=== PATIENT | male | born 1965 | race Caucasian/White ===

== ENCOUNTER 2022-05-18 07:25 | Emergency (ER) | payer BC ==
[2022-05-18 07:40] VITALS: BP 104/78; PULSE 95; RESP 18; TEMP 99.3; BMI 23.1
== END 2022-05-18 08:10 | disposition home or self-care (01) ==
LOC: FER 07:25
DX: L03.211 Cellulitis of face (principal)
CPT/HCPCS: 99283-25

== ENCOUNTER 2022-05-18 20:56 | Emergency (ER) | payer BC ==
[2022-05-18 21:14] VITALS: BP 132/80; PULSE 102; RESP 16; BMI 23.1
[2022-05-18] MEDS ORDERED: CEFTRIAXONE 2,000 MG in DEXTROSE 5%-WATER - 50 ML IVPB ONE (21:36)
[2022-05-18] MEDS ORDERED: ACETAMINOPHEN 500 MG TABLET (FP) PO ONE (21:45)
[2022-05-18] MEDS ORDERED: ACETAMINOPHEN 325 MG TABLET (FP) ONE (21:47)
[2022-05-18] MEDS ORDERED: KETOROLAC TROMETHAMINE 30 MG/1 ML VIAL ONE (22:56)
[2022-05-18] MEDS ORDERED: KETOROLAC TROMETHAMINE 30 MG/1 ML VIAL IVPUSH ONE (22:56)
[2022-05-18 23:05] LABS: HEMOGLOBIN 13.1 G/dL (11.7-16.9); MCH 28.7 pg (25.7-33.7); MCHC 34.4 g/dl (32.0-35.9); MEAN CELL VOLUME 83.5 fl (80-96); MEAN PLT VOLUME 8.2 fl (7.5-11.1); PLATELET COUNT 246.4 10^3/uL (134-434); RBC 4.55 10^6/uL (4.00-5.60); RDW 14.1 % (11.9-15.9); WHITE BLOOD COUNT 8.7 10^3/uL (4.0-10.8)
[2022-05-18 23:09] LABS: ALBUMIN 3.8 g/dl (3.4-5.0); BILIRUBIN,TOTAL 1.1 mg/dl (0.2-1); CALCIUM 8.8 mg/dl (8.5-10); CREATININE 0.7 mg/dl (0.55-1.3); TOT PROT 7.3 g/dl (6.4-8.2)
[2022-05-18 23:28] VITALS: TEMP 98.6
== END 2022-05-18 23:56 | disposition home or self-care (01) ==
LOC: FER 20:56
PROC: 3E033GC Introduction of Other Therapeutic Substance into Peripheral Vein, Percutaneous Approach (ICD-10-PCS; principal; 2022-05-18)
DX: K12.2 Cellulitis and abscess of mouth (principal)
CPT/HCPCS: 36415; 70490-TC; 80053; 85027; 87040; 99285-25

== ENCOUNTER 2023-02-04 10:08 | Emergency (ER) | payer BC ==
[2023-02-04 10:13] VITALS: BP 121/83; PULSE 78; RESP 18; TEMP 98.5; BMI 23.1
[2023-02-04] MEDS ORDERED: METOCLOPRAMIDE HCL INJECTION 10 MG/2 ML VIAL IVPB ONE (10:22)
[2023-02-04] MEDS ORDERED: SODIUM CHLORIDE 0.9% 500 ML INFUS.BAG IV ONE (10:22)
[2023-02-04] MEDS ORDERED: ACETAMINOPHEN 500 MG TABLET (FP) PO ONE (10:22)
[2023-02-04] MEDS ORDERED: ACETAMINOPHEN 325 MG TABLET (FP) ONE (10:41)
[2023-02-04] MEDS ORDERED: METOCLOPRAMIDE HCL INJECTION 10 MG/2 ML VIAL ONE (10:42)
[2023-02-04 10:59] LABS: HEMATOCRIT 40.7 % (35.4-49); HEMOGLOBIN 13.7 G/dL (11.7-16.9); MCH 28.2 pg (25.7-33.7); MCHC 33.6 g/dl (32.0-35.9); MEAN PLT VOLUME 8.5 fl (7.5-11.1); PLATELET COUNT 238.5 10^3/uL (134-434); RBC 4.85 10^6/uL (4.00-5.60); RDW 14.5 % (11.9-15.9); WHITE BLOOD COUNT 3.9 10^3/uL (4.0-10.8)
[2023-02-04 11:06] LABS: ALBUMIN 4.3 g/dl (3.4-5.0); ALK PHOS 59 U/L (45-117); ANION GAP 8 MMOL/L (8-16); BILIRUBIN,TOTAL 0.5 mg/dl (0.2-1); BLOOD UREA NITROGEN 15.1 mg/dl (7-18); CALCIUM 9.1 mg/dl (8.5-10.1); CHLORIDE 105 mmol/L (98-107); CO2 25 mmol/L (21-32); CREATININE 0.8 mg/dl (0.6-1.3); GLUCOSE,RANDOM 129 mg/dl (74-106); MAGNESIUM 1.9 mg/dL (1.8-2.4); PHOSPHOROUS 3.07 (2.5-4.9); POTASSIUM 4.2 mmol/L (3.5-5.1); SGOT/AST 18.9 U/L (15-37); SGPT/ALT 20.3 U/L (7-52); SODIUM 138 mmol/L (136-145); TOT PROT 6.8 g/dl (6.4-8.2)
[2023-02-04 11:50] LABS: PLATELET ESTIMATE ADEQUATE
== END 2023-02-04 11:49 | disposition home or self-care (01) ==
LOC: FER 10:08
PROC: 3E0333Z Introduction of Anti-inflammatory into Peripheral Vein, Percutaneous Approach (ICD-10-PCS; principal; 2023-02-04)
PROC: 3E0333Z Introduction of Anti-inflammatory into Peripheral Vein, Percutaneous Approach (ICD-10-PCS; 2023-02-04)
DX: R51.9 Headache, unspecified (principal); R20.2 Paresthesia of skin; R20.0 Anesthesia of skin; J32.4 Chronic pansinusitis
CPT/HCPCS: 36415; 70450-TC; 80053; 83735; 84100; 84484; 85027; 86850; 86900; 86901; 93005; 99285-25

== ENCOUNTER 2023-10-10 10:26 | Emergency (ER) | payer BC ==
[2023-10-10 10:38] VITALS: BP 116/78; PULSE 69; RESP 16; TEMP 97.8; BMI 25.0
[2023-10-10] MEDS ORDERED: KETOROLAC TROMETHAMINE 30 MG/1 ML VIAL ONE (11:09)
[2023-10-10] MEDS: KETOROLAC TROMETHAMINE 30 MG/1 ML VIAL IM ONE (11:13)
== END 2023-10-10 12:58 | disposition home or self-care (01) ==
LOC: FER 10:26
PROC: 3E0233Z Introduction of Anti-inflammatory into Muscle, Percutaneous Approach (ICD-10-PCS; principal; 2023-10-10)
DX: M25.561 Pain in right knee (principal)
CPT/HCPCS: 73562-TC-RT-FY; 99284-25

== ENCOUNTER 2024-08-25 06:50 | Emergency (ER) | payer OTHER, BC ==
[2024-08-25 07:00] VITALS: BMI 25.7
[2024-08-25] MEDS ORDERED: ACETAMINOPHEN 325 MG TABLET (FP) ONE (09:56)
[2024-08-25] MEDS: ACETAMINOPHEN 325 MG TABLET (FP) PO ONE (10:03)
[2024-08-25 10:10] LABS: ABSOLUTE IMMATURE GRANULOCYTES 0.01 x10^3/uL (0.0-0.031); BASOPHILS # 0.04 x10^3/uL (0.01-0.08); EOSINOPHIL % 0.8 % (0.8-7.0); EOSINOPHILS # 0.07 x10^3/uL (0.04-0.54); HEMATOCRIT 42.4 % (40.1-51.0); HEMOGLOBIN 14.3 g/dL (13.7-17.5); MCHC 33.7 g/dl (32.3-36.5); MEAN PLT VOLUME 10.1 fl (9.4-12.4); MONOCYTE # 0.39 x10^3/uL (0.30-0.82); MONOCYTE % 4.6 % (5.3-12.2); PLATELET COUNT 274 x10^3/uL (163-337); RDW 12.1 % (12.2-16.1)
[2024-08-25 10:20] LABS: ALBUMIN 4.3 g/dl (3.4-5.0); BILIRUBIN,TOTAL 0.9 mg/dl (0.2-1); CALCIUM 9.1 mg/dl (8.5-10.1); CREATININE 0.8 mg/dl (0.6-1.3); POTASSIUM 4.4 mmol/L (3.5-5.1); TOT PROT 6.8 g/dl (6.4-8.2)
[2024-08-25 10:31] LABS: ACTIVATED PTT 32.4 SECONDS (25.2-36.5); INR 1.05 (0.83-1.09); PROTHROMBIN TIME (PATIENT) 11.7 SEC (9.7-13.0)
[2024-08-25 10:48] VITALS: BP 110/87; PULSE 63; RESP 18; TEMP 98.8
== END 2024-08-25 10:58 | disposition home or self-care (01) ==
LOC: FER 06:50
DX: R55 Syncope and collapse (principal); R07.0 Pain in throat; T59.891A Toxic effect of other specified gases, fumes and vapors, accidental (unintentional), initial encounter
CPT/HCPCS: 36415; 80053; 85025; 85610; 85730; 99283-25